=== PATIENT | female | born 1995 | race Two or more races ===

== ENCOUNTER 2018-10-10 11:58 | Emergency (ER) | payer OTHER ==
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
[2018-10-10 15:18] VITALS: BP 105/57
== END 2018-10-10 15:19 | disposition home or self-care (01) ==
LOC: ER 11:58
DX: O26.92 Pregnancy related conditions, unspecified, second trimester (principal); M79.602 Pain in left arm; V89.2XXA Person injured in unspecified motor-vehicle accident, traffic, initial encounter; Z3A.17 17 weeks gestation of pregnancy
CPT/HCPCS: 76805; 93976; 99284